=== PATIENT | male | born 2000 | race Two or more races ===

== ENCOUNTER → 2020-06-03 | Outpatient (CLI) | payer SELFPAY | LOC: M LABSMTC 10:43 | PROVIDERS: ATTEND Pediatrics | DX: Z20.822 Contact with and (suspected) exposure to COVID-19 (principal) ==

== ENCOUNTER → 2020-09-18 | Outpatient (CLI) | payer OTHER ==
--- NOTE | 2020-09-18 16:44 | REPPI ---
INDICATION: M25.561 PAIN IN RIGHT KNEE COMPARISON: None. TECHNIQUE: AP, lateral, bilateral oblique and sunrise views. FINDINGS: There is a small exostosis identified along the lateral aspect of the distal femoral metaphysis. The examination is otherwise essentially normal. There is no evidence for acute fracture or dislocation. Joint spaces are relatively normal. No effusion. IMPRESSION: Exostosis identified along the lateral distal femur. Otherwise normal age-appropriate right knee radiographs. <Electronically signed by Parvez Maria > 09/18/20 [id number]
== END ==
LOC: M PLAIMG 15:48
PROVIDERS: ATTEND Specialist
DX: M25.561 Pain in right knee (principal)

== ENCOUNTER 2023-07-18 11:25 | Emergency (ER) | payer OTHER ==
[~2023-07-18] VITALS: Ht 185.4 cm; Wt 77.8 kg
[2023-07-18 11:26] VITALS: BP 142/74; TEMP 98.3; O2SAT 99
[2023-07-18] MEDS ORDERED: NAPR-837 PO (14:20)
== END 2023-07-18 14:29 | disposition home or self-care (01) ==
LOC: M ED 11:25
DX: M72.2 Plantar fascial fibromatosis (principal); Z79.1 Long term (current) use of non-steroidal anti-inflammatories (NSAID)